=== PATIENT | male | born 1990 ===

== ENCOUNTER 2019-11-26 17:15 | Emergency (ER) | payer OTHER ==
[~2019-11-26] VITALS: Ht 180.3 cm; Wt 59.0 kg
[~2019-11-26 17:15] MED LIST: TYLENOL325 MG
== END 2019-11-26 19:37 | disposition home or self-care (01) ==
LOC: ER 17:15
DX: S13.4XXA Sprain of ligaments of cervical spine, initial encounter (principal); M62.838 Other muscle spasm; V49.9XXA Car occupant (driver) (passenger) injured in unspecified traffic accident, initial encounter; Y93.89 Activity, other specified; Y92.488 Other paved roadways as the place of occurrence of the external cause; Y99.8 Other external cause status

== ENCOUNTER 2021-04-28 17:55 | Emergency (ER) | payer OTHER ==
[~2021-04-28] VITALS: Ht 180.3 cm; Wt 63.5 kg
[2021-04-28] MEDS ORDERED: ZITHROMAX200 MG PO (21:39)
== END 2021-04-28 22:03 | disposition home or self-care (01) ==
LOC: ER 17:55
DX: U07.1 COVID-19 (principal); A49.3 Mycoplasma infection, unspecified site